=== PATIENT | male | born 1980 | race African-American/Black ===

== ENCOUNTER → 2023-06-10 | Outpatient (CLI) | payer SELFPAY | END | disposition home or self-care (01) | DX: E66.3 Overweight (principal); Z68.28 Body mass index [BMI] 28.0-28.9, adult | CPT/HCPCS: 76499 ==

== ENCOUNTER → 2023-08-06 | Outpatient (CLI) | payer SELFPAY | END | disposition home or self-care (01) | DX: E66.3 Overweight (principal); Z68.28 Body mass index [BMI] 28.0-28.9, adult | CPT/HCPCS: 76499 ==